=== PATIENT | male | born 1980 | race Two or more races ===

== ENCOUNTER 2018-04-14 03:10 | Emergency (ER) | payer OTHER ==
[2018-04-14] MEDS ORDERED: LIDOCAINE 4%/MENTHOL 1% PATCH TD ONE (03:40)
[2018-04-14] MEDS ORDERED: HYDROCODONE/APAP 5/325 TAB PO ONE (03:40)
[2018-04-14] MEDS ORDERED: IBUPROFEN 200 MG TAB PO ONE ×2 (03:48→03:50)
--- NOTE | 2018-04-14 03:49 | EDPHY ---
H & P Stated Complaint: backpain for 1 wk Time Seen by Provider: 04/14/18 03:30 HPI/ROS: Chief Complaint: Back pain HPI: 37-year-old male's been having waxing waning persistent back pain in the left side of his lower back for the last week. He denies any injury. In a restaurant. Some lifting. Some twisting. He had a similar episode several years ago. No difficulty urinating or having a bowel movement. No new numbness or weakness. He is ambulating some discomfort but no weakness or falls. Does radiate into his buttocks and left side. ROS: 10 systems were reviewed and were negative except those elements noted in the HPI. PMH: Denies Social History: No smoking, no alcohol, no recreational drug use Family History: non-contributory Physical Exam: Gen: Awake, Alert, No Distress HEENT: Nose: no rhinorrhea Eyes: PERRLA, EOMI Mouth: Moist mucosa Neck: Supple, no JVD Chest: nontender, lungs clear to auscultation Heart: S1, S2 normal, no murmur Abd: Soft, non-tender, no guarding Back: no CVA tenderness, no midline tenderness he has palpable muscle spasm on the left paraspinal muscles in the lumbar region reproducing his presenting complaint Ext: no edema, non-tender Skin: no rash Neuro: CN II-XII intact, Sensation grossly intact, Strength 5/5 in bilateral upper and lower extremities, he has 2+ patellar reflexes, normal dorsum plantar flexion. Normal flexion extension strength of his knees. Normal proximal muscle strength. - Personal History Current Tetanus/Diphtheria Vaccine: Unsure Current Tetanus Diphtheria and Acellular Pertussis (TDAP): Unsure - Medical/Surgical History Hx Asthma: No Hx Chronic Respiratory Disease: No Hx Diabetes: No Hx Cardiac Disease: No Hx Renal Disease: No Hx Cirrhosis: No Hx Alcoholism: No Hx HIV/AIDS: No Hx Splenectomy or Spleen Trauma: No - Social History Smoking Status: Never smoked Constitutional: Initial Vital Signs Temperature (C) 36.3 C 04/14/18 03:13 Heart Rate 81 04/14/18 03:13 Respiratory Rate 16 04/14/18 03:13 Blood Pressure 139/85 H 04/14/18 03:13 O2 Sat (%) 98 04/14/18 03:13 O2 Delivery Mode Room Air Allergies/Adverse Reactions: No Known Allergies Allergy (Unverified 04/14/18 03:16) Medical Decision Making ED Course/Re-evaluation: 37-year-old male with musculoskeletal low back pain. He has not have any red flags for acute cauda equina or abscess. He has been taking in adequate dosing of ibuprofen. He took 400 mg about an hour ago. Will give him an additional 200 mg now. Will give him a Lidoderm patch. Send him home with hydrocodone take-home pack. Low back exercises, follow up with primary care. Departure - Departure Disposition: Home, Routine, Self-Care Clinical Impression: Lumbar back pain Condition: Good Instructions: Low Back Strain (ED), Lower Back Exercises (ED) Additional Instructions: Take ibuprofen, 600 mg, 3 times a day. You may also take acetaminophen, 1000 mg every 6 hours. You may replace a Lidoderm patch every 24 hr, these are available over-the- counter. Apply ice for 15 minutes of every hour while awake. Make sure to remain active. Did do not lay in bed or sit in a chair for long periods. Avoid heavy lifting or bending at work until cleared by your physician. Please see the attached back exercise instructions. Follow up with your primary care physician in 2-3 days for further evaluation. Referrals: [facility],. [Clinic] - As per Instructions
[2018-04-14] MEDS ORDERED: HYDROCOD/APAP 5/325 PREPACK#6 BTL TAKEHOME ONE (03:50)
[2018-04-14 04:13] VITALS: BP 134/84
== END 2018-04-14 04:09 | disposition home or self-care (01) ==
DX: M54.5 Low back pain (principal)